=== PATIENT | female | born 1970 | race Caucasian/White ===

== ENCOUNTER 2023-01-25 14:36 | Emergency (ER) | payer OTHER ==
[2023-01-25 14:54] VITALS: BP 137/87; PULSE 86; RESP 16; TEMP 97.8; BMI 17.2
[2023-01-25] MEDS ORDERED: IBUPROFEN 600 MG TABLET (FP) PO ONE ×2 (14:54→15:01)
[2023-01-25] MEDS ORDERED: ACETAMINOPHEN 500 MG TABLET (FP) PO ONE (14:54)
[2023-01-25] MEDS ORDERED: ACETAMINOPHEN 500 MG TABLET (FP) ONE (15:01)
== END 2023-01-25 16:59 | disposition home or self-care (01) ==
LOC: JER 14:36
DX: S49.92XA Unspecified injury of left shoulder and upper arm, initial encounter (principal); M25.512 Pain in left shoulder; W11.XXXA Fall on and from ladder, initial encounter; W22.8XXA Striking against or struck by other objects, initial encounter; Y99.0 Civilian activity done for income or pay
CPT/HCPCS: 70450-TC; 73030-TC-LT-FY; 99284-25